=== PATIENT | male | born 1955 | race Caucasian/White ===

== ENCOUNTER 2017-04-21 08:31 | Outpatient (CLI) | payer MEDICARE ==
--- NOTE | 2017-04-21 10:48 | CT ---
CT PULMONARY LUNG SCAN SCREENING: Date: 04/21/17 HISTORY: Low dose lung scan. Patient is a 40+ year smoker. COMPARISON: Chest 2 views dated 03/01/17. TECHNIQUE: CT of the chest performed without contrast per screening protocol. FINDINGS: Lung Screening Specific (Lung-RADS): Negative. There are a few minor findings not suspicious for pr imary lung cancer, including a few punctate sub-3.0 mm pulmonary nodules. Potentially Significant Incidentals (Lung-RADS Category S): None. Pulmonary Incidentals: There are a few, scattered, sub-3.0 mm nodules, for example, in the right lo wer lobe series 3, image 43. There is a small cluster of nodules in the superior segment right lower lobe, which appears to be inflammatory, series 3, image 31. This is not a solid nodule. Other Incidentals: Trace coronary artery calcifications. Low grade calcifications of aorta. No disp laced rib fracture. Upper abdomen is unremarkable. IMPRESSION: 1. Lung-RADS Category 2: Benign appearance or behavior. Continue annual screening with low dose CT in 12 months. 2. Lung-RADS Category S: Negative. No new or unknown potentially significant incidental findings r equiring urgent additional evaluation. POS: [facility]
== END 2017-04-21 08:32 | disposition home or self-care (01) ==
LOC: CT 08:31
PROVIDERS: ATTEND Student in an Organized Health Care Education/Training Program
DX: F17.210 Nicotine dependence, cigarettes, uncomplicated (principal); J44.9 Chronic obstructive pulmonary disease, unspecified
CPT/HCPCS: G0297

== ENCOUNTER 2018-03-29 13:25 | Outpatient (CLI) | payer MEDICARE, MEDICAID ==
--- NOTE | 2018-03-29 14:52 | CT ---
HEAD CT WITHOUT CONTRAST: Date: 03-29-18 Comparison: None. History: Fall, trauma, pain. Technique: Serial axial CT imaging at 5 mm intervals from vertex through the skull base without contr ast. FINDINGS: There is mucosal thickening involving the left frontal sinus and there is partial opacification of th e right maxillary sinus. No intracranial hemorrhage, midline shift, mass effect, or ventricular enlargement. No displaced calv arial fracture. There is scattered deep white matter and periventricular white matter hypodensity suggesting a degree of small vessel disease. IMPRESSION: No intracranial hemorrhage or displaced calvarial fracture. POS: [facility]
== END 2018-03-29 13:26 | disposition home or self-care (01) ==
LOC: CT 13:25
PROVIDERS: ATTEND Family Medicine
DX: S02.101A Fracture of base of skull, right side, initial encounter for closed fracture (principal)
CPT/HCPCS: 70450

== ENCOUNTER 2025-01-28 10:08 | Outpatient (CLI) | payer MEDICARE | END 2025-01-28 10:09 | disposition home or self-care (01) | LOC: RAD 10:08 | PROVIDERS: ATTEND Internal Medicine Critical Care Medicine | DX: R06.00 Dyspnea, unspecified (principal) | CPT/HCPCS: 71046 ==

== ENCOUNTER 2025-05-22 13:10 | Outpatient (CLI) | payer MEDICARE | END 2025-05-22 13:11 | disposition home or self-care (01) | LOC: BICCT 13:10 | PROVIDERS: ATTEND Family Medicine | DX: Z12.2 Encounter for screening for malignant neoplasm of respiratory organs (principal); F17.210 Nicotine dependence, cigarettes, uncomplicated | CPT/HCPCS: 71271 ==